=== PATIENT | male | born 1935 | race American Indian/Alaskan Native ===

== ENCOUNTER 2017-06-03 21:08 | Observation (INO) | payer MEDICARE ==
[2017-06-03 22:18] VITALS: BMI 22.2
--- NOTE | 2017-06-03 23:09 | ED PDOC ---
Arrival/HPI - General Chief Complaint: Syncope Time Seen by Provider: 06/03/17 22:33 Historian: Patient - History of Present Illness Narrative History of Present Illness (Text): 06/03/17 23:07 81 y/o male, pmh including htn/hyperlipidemia/seizure (was on phenobarbital and not sure has he been taking it)/CAD, allergic to morphine, c/o 2 syncope episodes at home on 06/03/2017 2am and another episode around 3am while he was cooking with no chest pain or shortness of breath. Pt. stated that he was cooking and pass out the first time. Pt. pass out another time while he was walking from the kitchen to the bedroom which he stated that he noticed that he urinated on himself. Pt. woke up and noticed the food on the floor, admits lt. hip and lt .shoulder pain plus the lower back pain from the syncope episode, didn't speak up until later this evening to the daughter and send him to the ER for evaluation. pt. stated that he feels well and no discomfort, no palpitation , no night sweat, no dizziness, no other medical or psychological complaints. Past Medical History - Provider Review Nursing Documentation Reviewed: Yes - Infectious Disease Hx of Infectious Diseases: None - Cardiac Hx Hypertension: Yes - Psychiatric Hx Substance Use: No - Surgical History Hx Cardiac Catheterization: Yes (x 1 stent) - Anesthesia Hx Anesthesia: Yes Hx Anesthesia Reactions: No Hx Malignant Hyperthermia: No Family/Social History - Physician Review Nursing Documentation Reviewed: Yes Family/Social History: Unknown Family HX Smoking Status: Never Smoked Hx Alcohol Use: No Hx Substance Use: No Allergies/Home Meds Allergies/Adverse Reactions: Allergies morphine Allergy (Verified 06/03/17 22:19) SWELLING Home Medications: Home Meds Medication Instructions Recorded Confirmed Amoxicillin [Amoxil 500 mg Cap] 1 cap PO BID 06/03/17 06/03/17 Aspirin [Adult Low Dose Aspirin EC] 1 tab PO DAILY 06/03/17 06/03/17 Atorvastatin [Lipitor] 1 tab PO HS 06/03/17 06/03/17 Carvedilol [Coreg] 1 tab PO BID 06/03/17 06/03/17 Losartan [Cozaar] 1 tab PO DAILY 06/03/17 06/03/17 Multivit-Min/FA/Lycopen/Lutein 1 tab PO DAILY 06/03/17 06/03/17 [Centrum Silver Tablet] Promethazine [Phenergan Syrup] 2 tsp PO TID 06/03/17 06/03/17 amLODIPine [Norvasc] 1 tab PO DAILY 06/03/17 06/03/17 Review of Systems - Review of Systems Constitutional: absent: Fatigue, Fevers, Night Sweats Eyes: absent: Vision Changes ENT: absent: Hearing Changes Respiratory: absent: SOB, Cough Cardiovascular: absent: Chest Pain Gastrointestinal: absent: Abdominal Pain, Diarrhea, Nausea, Vomiting Musculoskeletal: Arthralgias, Back Pain, Myalgias Skin: absent: Rash, Pruritis Neurological: absent: Headache, Dizziness Psychiatric: absent: Anxiety, Depression Physical Exam Vital Signs Reviewed: Yes Vital Signs Temp Pulse Resp BP Pulse Ox 06/04/17 10:24 65 122/75 06/04/17 10:23 67 122/75 06/03/17 22:30 98.6 F 68 12 134/76 100 Temperature: Afebrile Blood Pressure: Normal Pulse: Regular Respiratory Rate: Normal Appearance: Positive for: Well-Appearing, Non-Toxic, Comfortable Pain Distress: None Mental Status: Positive for: Alert and Oriented X 3 - Systems Exam Head: Present: Atraumatic, Normocephalic. No: Tenderness, Contusion, Swelling, Ecchymosis, Abrasion, Laceration, Other Pupils: Present: PERRL Extroacular Muscles: Present: EOMI Conjunctiva: Present: Normal Mouth: Present: Moist Mucous Membranes Nose (External): Present: Atraumatic. No: Abrasion, Contusion, Laceration, Lesions Nose (Internal): Present: Normal Inspection, No Active Bleeding. No: Rhinorrhea , Septal Hematoma, Epistaxis Neck: Present: Normal Range of Motion, Trachea Midline. No: Meningeal Signs, MIDLINE TENDERNESS, Paraspinal Tenderness, Lymphadenopathy Respiratory/Chest: Present: Clear to Auscultation, Good Air Exchange. No: Respiratory Distress, Accessory Muscle Use Cardiovascular: Present: Regular Rate and Rhythm, Normal S1, S2. No: Murmurs Abdomen: Present: Normal Bowel Sounds. No: Tenderness, Distention, Peritoneal Signs, Rebound, Guarding Back: Present: Normal Inspection, Paraspinal Tenderness (+ttp on the lt. paraspinal muscle region, no deformity, SLR test negative. ). No: CVA Tenderness, Midline Tenderness Upper Extremity: Present: Normal Inspection, Other (LUE: mild +ttp on the shoulder joint, no deformity, FROM without limitation, sensation intact, motor 5 /5, +Radial pulse, capillary refill< 2 seconds, neurovascular intact. ). No: Cyanosis, Edema Lower Extremity: Present: Normal Inspection, Other (LLE: +ttp on the lt. anterior kness otherwise no tenderness or swelling, no deformity, FROM without limitation, sensation intact, motor 5/5, +DPPT pulse, capillary refill< 2 seconds, neurovascular intact.). No: Edema Neurological: Present: GCS=15, CN II-XII Intact, Speech Normal, Motor Func Grossly Intact, Gait Normal, Memory Normal, Other (normal finger to nose, normal heel to burgess test, no focal neurological deficits. ) Skin: Present: Warm, Dry, Normal Color. No: Rashes Psychiatric: Present: Alert, Oriented x 3, Normal Insight, Normal Concentration Medical Decision Making ED Course and Treatment: 06/03/17 23:07 -labs/ua/cardiac enzyme -CT head and lumber -Hips/pelvis and lt. shouder xray -IVF -EKG -cardiac sonographer -Observe and reassess 06/04/17 01:45 -EKG: NSR @ 68 BPM, no ST elevation or depression, no T wave inversion, no previous comparison for ekg. -CT head show no acute findings -CT lumbar No fracture. If back pain persists, consider MRI for further evaluation. Prostate enlargement. Followup as clinically warranted. Mild bladder wall thickening. Clinical correlation is needed. -Bilateral hip and pelvis no acute fracture or dislocation. -Lt. shoulder xray no acute fracture or dislocation -Lt. knee xray show no acute findings. Ordered as the patient now complaints about left knee pain. -Labs show no acute findings except BUN 24 (IVF ordered) and CK 403 (likely from fall or seizure), BNP negative, troponin is negative at this time. -UA show no UTI -Aspirin 325mg po ordered as the work up conclusion for syncope is unclear at this point, aspiration and seizure precaution ordered. Phenobarbital level ordered as well. -NIHSS is 0 -swallow screen ordered and completed. -base on the labs/HPI/radiology study, it's likely neurologic syncope vs. cardiac syncope vs. seizure especially with elevation of CK, will need to be admitted for work up for 2 episodes of syncope episodes in less than 24 hours. 06/04/17 02:04 -I spoke to the medical doctor and DR. Huber Hightower about the case, discussed about the case in detail, agreed to admit the patient to tele. -I discussed with Dr. Arana, discussed about the case/labs in detail, agreed to put the admission order. - Lab Interpretations Lab Results: 06/03/17 23:05 06/03/17 23:05 Lab Results 06/04/17 00:15: Urine Color Yellow, Urine Appearance Clear, Urine pH 6.0, Ur Specific [place] 1.020, Urine Protein Negative, Urine Glucose (UA) Negative, Urine Ketones Negative, Urine Blood Negative, Urine Nitrate Negative, Urine Bilirubin Negative, Urine Urobilinogen 0.2, Ur Leukocyte Esterase Negative 06/03/17 23:05: WBC 7.1, RBC 4.71, Hgb 11.5 L, Hct 36.3 L, MCV 77.1 L, MCH 24.4 L, MCHC 31.7, RDW 13.3, Plt Count 173, MPV 10.6, Gran % 52.6, Lymph % (Auto) 33.8, [place] % (Auto) 7.0 H, Eos % (Auto) 6.0 H, Baso % (Auto) 0.6, Gran # 3.72, Lymph # (Auto) 2.4, [place] # (Auto) 0.5, Eos # (Auto) 0.4, Baso # (Auto) 0.04 06/03/17 23:05: Sodium 140, Potassium 4.1, Chloride 102, Carbon Dioxide 27, Anion Gap 15, BUN 24 H, Creatinine 1.4, Est GFR ( Amer) 59, Est GFR (Non- Af Amer) 49, Random Glucose 91, Calcium 9.8, Magnesium 2.0, Total Bilirubin 0.5 , AST 47, ALT 26, Alkaline Phosphatase 72, Lactate Dehydrogenase 484, Total Creatine Kinase 403 H, CK-MB (CK-2) 2.6, CK-MB (CK-2) % Cancelled, Troponin I < 0.01, Total Protein 7.3, Albumin 4.2, Globulin 3.1, Albumin/Globulin Ratio 1.3 - RAD Interpretation Radiology Orders: 06/03/17 23:02 HEAD W/O CONTRAST [CT] Stat LUMBAR SPINE W/O CONTRAST [CT] Stat SHOULDER LEFT [RAD] Stat 06/03/17 23:06 Hip Bi with Pelvis Fall Protocol [HIP MIN 2V W/ PELVIS MARTINE] [RAD] Stat 06/04/17 02:03 KNEE WITH PATELLA LEFT 3 VIEW [RAD] Stat -CT head FINDINGS: Brain: [id number] atrophy. No intracranial hemorrhage. No mass. Several scattered foci of decreased attenuation within periventricular/subcortical white matter. No definite edema. Ventricles: No hydrocephalus. Bones/joints: No acute fracture. Degenerative changes of RIGHT temporomandibular joint. Soft tissues: Unremarkable. Vasculature: Mild atherosclerotic disease of intracranial arteries. Sinuses: Ipqo-[id number] mucosal thickening of ethmoid sinuses. Scattered minimal mucosal thickening of remaining sinuses. Mastoid air cells: No mastoid effusion. Orbits: Unremarkable as visualized. IMPRESSION: 1. Nonspecific white matter changes. Acute infarction may be CT occult within first 24 hours. If a focal deficit persists, consider followup CT or MRI for further evaluation. 2. Incidental/non-acute findings are described above. Dictated and Authenticated by: Eladio Lora MD 06/04/2017 12:48 AM Eastern Time ([place] & [place]) -CT lumbar FINDINGS: Vertebrae: No acute fracture. Degenerative retrolithesis of upper lumbar spine. Levoscoliosis. Facet osteoarthrosis. Discs/spinal canal/neural foramina: Moderate degenerative disc disease at L1-L2 , L2-L3 levels. Severe degenerative disc disease at L3-L4, L5-S1 levels. Mild central canal stenosis at L1-L2, L2-L3 levels. Moderate central canal stenosis at L3-L4, L4-L5 levels. Multilevel neuroforaminal narrowing. Soft tissues: Unremarkable. Vasculature: Mild atherosclerotic disease. Lungs: Mild atelectasis. Liver: Small calcification. Adrenals: Mild hypertrophy of adrenal glands. Bladder: Mild bladder wall thickening. Reproductive: Enlarged prostate gland. IMPRESSION: 1. No fracture. If back pain persists, consider MRI for further evaluation. 3. Prostate enlargement. Followup as clinically warranted. 4. Mild bladder wall thickening. Clinical correlation is needed. 5. Incidental/non-acute findings are described above. Thank you for allowing us to participate in the care of your patient. Dictated and Authenticated by: Eladio Lora MD 06/04/2017 1:28 AM Eastern Time ([place] & [place]) -Bilateral hip and pelvis: no acute findings -Lt. shoulder xray: no acute findings Bilingual Teacher Assistant: Radiologist - EKG Interpretation EKG Interpretation (Text): 06/04/17 14:46 EKG: NSR @ 68 BPM, no ST elevation or depression, no T wave inversion, no previous comparison for ekg. Interpreted by ED Physician: Yes Type: 12 lead EKG Comparison: No previous EKG avail. - Medication Orders Current Medication Orders: Amlodipine Besylate (Norvasc) 10 mg PO DAILY [facility] Last Admin: 06/04/17 10:23 Dose: 10 mg MAR Blood Pressure Document 06/04/17 10:23 NGOLK (Rec: 06/04/17 10:23 NGOLK [id number]) Blood Pressure Blood Pressure (100/60-150/90) 122/75 Aspirin (Ecotrin) 81 mg PO DAILY [facility] Last Admin: 06/04/17 10:23 Dose: 81 mg Atorvastatin Calcium (Lipitor) 40 mg PO [facility] Carvedilol (Coreg) 3.125 mg PO BID [facility] Last Admin: 06/04/17 10:24 Dose: 3.125 mg [facility] Pulse and Blood Pressure Document 06/04/17 10:24 NGOLK (Rec: 06/04/17 10:24 NGOLK [id number]) Pulse Pulse Rate (60-90) 65 Blood Pressure Blood Pressure (100/60-150/90) 122/75 Famotidine (Pepcid) 40 mg PO HS [facility] Sodium Chloride (Sodium Chloride 0.9%) 1,000 mls @ 100 mls/hr IV .Q10H [facility] Last Admin: 06/04/17 10:23 Dose: 100 mls/hr eMAR Start Stop Document 06/04/17 10:23 NGOLK (Rec: 06/04/17 10:23 NGOLK [id number]) Intravenous Solution Start Date 06/04/17 Start Time 10:23 Ketorolac Tromethamine (Toradol) 15 mg IVP Q6H PRN PRN Reason: Pain, moderate (4-7) Losartan Potassium (Cozaar) 50 mg PO DAILY [facility] Last Admin: 06/04/17 10:23 Dose: 50 mg MAR Pulse and Blood Pressure Document 06/04/17 10:23 NGOLK (Rec: 06/04/17 10:24 NGOLK [id number]) Pulse Pulse Rate (60-90) 67 Blood Pressure Blood Pressure (100/60-150/90) 122/75 Discontinued Medications Aspirin (Aspirin) 325 mg PO STAT STA Stop: 06/04/17 00:58 Last Admin: 06/04/17 01:13 Dose: 325 mg Potassium Chloride (K-Dur 20 Meq Er Tab) 40 meq PO STAT STA Stop: 06/04/17 08:16 Last Admin: 06/04/17 08:34 Dose: 40 meq NIHSS Scale ([place]) Time Performed: 00:58 - How Severe is the [place]oke Baseline Level of Consciousness: 0=Alert LOC to Questions: 0=Both comments correct LOC to commands: 0=Obeys both correctly Best Gaze: 0=Normal Visual: 0=No visual loss Facial: 0=Normal Motor Arm - Left: 0=No drift Motor Arm - Right: 0=No drift Motor Leg - Left: 0=No drift Motor Leg - Right: 0=No drift Limb Ataxia: 0=Absent Sensory: 0=Normal Best Language: 0=No aphasia Dysarthia: 0=Normal articulation Extinction & Inattention (Neglect): 0=Normal, no object Score: 0 Risk Level: No Stroke Risk - PA / PRINTING SALES REPRESENTATIVE / Resident Statement MD/DO has reviewed & agrees with the documentation as recorded. Disposition/Present on Arrival - Present on Arrival Any Indicators Present on Arrival: No History of DVT/PE: No History of Uncontrolled Diabetes: No Urinary Catheter: No History of Decub. Ulcer: No History Surgical Site Infection Following: None - Disposition Have Diagnosis and Disposition been Completed?: Yes Diagnosis: Syncope, Arthralgia, Dehydration, Elevated CK Disposition: HOSPITALIZED Disposition Time: 00:59 Patient Plan: Admission, Telemetry Patient Problems: Current Active Problems Problem Status Onset Arthralgia Acute Dehydration Acute Elevated CK Acute Syncope Acute Condition: STABLE
[2017-06-03 23:47] LABS: BASO # 0.04 K/mm3 (0.0-2.0); BASO % 0.6 % (0.0-3.0); EOS # 0.4 (0.0-0.7); GRAN # 3.72 (1.4-6.5); GRAN % 52.6 % (50.0-68.0); HEMOGLOBIN 11.5 g/dL (14.0-18.0); LYMPH # 2.4 (1.2-3.4); LYMPH % 33.8 % (22.0-35.0); MEAN CELL VOLUME 77.1 fl (80.0-105.0); MEAN CORPUSCULAR HEMOGLOBIN 24.4 pg (25.0-35.0); MEAN CORPUSCULAR HGB CONC 31.7 g/dl (31.0-37.0); MEAN PLATELET VOLUME 10.6 fl (7.0-11.0); MONO # 0.5 (0.1-0.6); RBC 4.71 10^6/uL (3.5-6.1); RED CELL DISTRIBUTION WIDTH 13.3 % (11.5-14.5); WHITE BLOOD COUNT 7.1 10^3/ul (4.5-11.0)
[2017-06-03] MEDS: Sodium Chloride 0.9% 1,000 ML IV SCH (23:49)
[2017-06-04] LABS: TROPONIN I < 0.01 ng/mL
[2017-06-04 00:03] LABS: ALB/GLOB RATIO 1.3 (1.1-1.8); ALBUMIN 4.2 g/dL (3.0-4.8); ALT/SGPT 26 U/L (7-56); AST/SGOT 47 U/L (17-59); BLOOD UREA NITROGEN 24 mg/dL (7-21); CALCIUM 9.8 mg/dL (8.4-10.5); GFR AFRICAN-AMERICAN 59; GFR NON-AFRICAN AMERICAN 49
[2017-06-04 00:24] LABS: CK-MB 2.6 ng/mL (0.0-3.6)
[2017-06-04 00:29] LABS: URINE BILIRUBIN NEGATIVE (NEGATIVE); URINE BLOOD NEGATIVE (NEGATIVE); URINE GLUCOSE (UA) NEGATIVE (NEGATIVE); URINE LEUKOCYTE ESTERASE NEGATIVE Leu/uL (NEGATIVE); URINE NITRATE NEGATIVE (NEGATIVE); URINE PROTEIN NEGATIVE mg/dL (<30 mg/dL); URINE UROBILINOGEN 0.2 E.U./dL (<1 E.U./dL)
[2017-06-04 00:30] LABS: URINE APPEARANCE CLEAR (CLEAR); URINE COLOR YELLOW (YELLOW)
--- NOTE | 2017-06-04 00:49 | CT ---
EXAM: CT Head Without Intravenous Contrast CLINICAL HISTORY: 81 years old, male; Signs and symptoms; Syncope and collapse TECHNIQUE: Axial computed tomography images of the head/brain without intravenous contrast. All CT scans at this facility use one or more dose reduction techniques, viz.: automated exposure control; ma/kV adjustment per patient size (including targeted exams where dose is matched to indication; i.e. head); or iterative reconstruction technique. Coronal and sagittal reformatted images were created and reviewed. COMPARISON: No relevant prior studies available. FINDINGS: Brain: Dlny-bw-snwnugxx atrophy. No intracranial hemorrhage. No mass. Several scattered foci of decreased attenuation within periventricular/subcortical white matter. No definite edema. Ventricles: No hydrocephalus. Bones/joints: No acute fracture. Degenerative changes of RIGHT temporomandibular joint. Soft tissues: Unremarkable. Vasculature: Mild atherosclerotic disease of intracranial arteries. Sinuses: Uuvk-[id number]-xdeqtcsb mucosal thickening of ethmoid sinuses. Scattered minimal mucosal thickening of remaining sinuses. Mastoid air cells: No mastoid effusion. Orbits: Unremarkable as visualized. IMPRESSION: 1. Nonspecific white matter changes. Acute infarction may be CT occult within first 24 hours. If a focal deficit persists, consider followup CT or MRI for further evaluation. 2. Incidental/non-acute findings are described above.
--- NOTE | 2017-06-04 01:28 | CT ---
EXAM: CT Lumbar Spine Without Intravenous Contrast CLINICAL HISTORY: 81 years old, male; Pain; Low back pain; Additional info: Lower back pain S/P fall TECHNIQUE: Axial computed tomography images of the lumbar spine without intravenous contrast. All CT scans at this facility use one or more dose reduction techniques, viz.: automated exposure control; ma/kV adjustment per patient size (including targeted exams where dose is matched to indication; i.e. head); or iterative reconstruction technique. Coronal and sagittal reformatted images were created and reviewed. COMPARISON: No relevant prior studies available. FINDINGS: Vertebrae: No acute fracture. Degenerative retrolithesis of upper lumbar spine. Levoscoliosis. Facet osteoarthrosis. Discs/spinal canal/neural foramina: Moderate degenerative disc disease at L1-L2, L2-L3 levels. Severe degenerative disc disease at L3-L4, L5-S1 levels. Mild central canal stenosis at L1-L2, L2-L3 levels. Moderate central canal stenosis at L3-L4, L4-L5 levels. Multilevel neuroforaminal narrowing. Soft tissues: Unremarkable. Vasculature: Mild atherosclerotic disease. Lungs: Mild atelectasis. Liver: Small calcification. Adrenals: Mild hypertrophy of adrenal glands. Bladder: Mild bladder wall thickening. Reproductive: Enlarged prostate gland. IMPRESSION: 1. No fracture. If back pain persists, consider MRI for further evaluation. 3. Prostate enlargement. Followup as clinically warranted. 4. Mild bladder wall thickening. Clinical correlation is needed. 5. Incidental/non-acute findings are described above.
--- NOTE | 2017-06-04 03:24 | CP.PCM.HP ---
<Georgia Ray - Last Filed: 06/04/17 03:13> History of Present Illness - History of Present Illness History of Present Illness: CC: I passed out and fell Patient is an 81 y/o male with PMHx of htn, hld, CAD s/p 1 stent, h/o recurrent syncope like episodes brought in by ambulance s/p unwitnessed syncopal episode. Patient states last night after fixing his meal, he felt dizzy, he decided to lye on the ground, to let it pass. Then few moments later he got up, grab his food, then he doesn't remember what happened after. He saw himself lying on the ground with food on the floor, his buttocks hurting him, and he noted he had bowel incontinent. Denies bladder incontinent. Admits to headache. Denies bitting his tongue. Patient states about a year ago, while sitting on the toilet in the [employer] he passed out and fell, was admitted to [facility] [place] at the time and was referred to a cardiology. Pt states he had extensive cardiac work up at the time and it was normal. Patient denies any other episodes up until today. Patient states his PMD, Dr Dennis prescribed him phenobarbital transiently, however he hasn't been on phenobarbital since then. Patient has never seen a neurologist. Denies cp, sob, fever or chills, denies nausea, vomiting or diarrhea. No fever or chills. Patient states his stool has been dark. Denies bright red blood per rectum. Cardiology: Total cardiology care Pharmacy: [facility] in [place] PMHx: htn, hld, CAD s/p 1 stent, h/o recurrent syncope like episodes PSHx: left knee surgery, colonoscopy in the past FMHx: son and daughter has seizures? Social: Denies tobacco, alcohol and illicit drug use. Lives with allergy: morphine Home meds: Norvasc, Lipitor, asa Present on Admission - Present on Admission Any Indicators Present on Admission: No History of DVT/PE: No History of Uncontrolled Diabetes: No Urinary Catheter: No Decubitus Ulcer Present: No Review of Systems - Review of Systems All systems: reviewed and no additional remarkable complaints except Review of Systems: 12 point ROS reviewed, all negative except as per HPI. Past Patient History - Infectious Disease Hx of Infectious Diseases: None - Tetanus Immunizations Tetanus Immunization: Unknown - Past Social History Smoking Status: Never Smoked Alcohol: None Drugs: Denies Home Situation {Lives}: With Family - CARDIAC Hx Hypertension: Yes - PSYCHIATRIC Hx Substance Use: No - SURGICAL HISTORY Hx Cardiac Catheterization: Yes (x 1 stent) - ANESTHESIA Hx Anesthesia: Yes Hx Anesthesia Reactions: No Hx Malignant Hyperthermia: No Meds Allergies/Adverse Reactions: Allergies Allergy/AdvReac Type Severity Reaction Status Date / Time morphine Allergy SWELLING Verified 06/03/17 22:19 Physical Exam - Constitutional Appears: No Acute Distress - Head Exam Head Exam: ATRAUMATIC, NORMAL INSPECTION, NORMOCEPHALIC - Eye Exam Eye Exam: EOMI, Normal appearance, PERRL. absent: Scleral icterus Pupil Exam: NORMAL ACCOMODATION, PERRL. absent: Fixed - ENT Exam ENT Exam: Mucous Membranes Moist, Normal Exam - Neck Exam Neck exam: Positive for: Normal Inspection. Negative for: Lymphadenopathy, Meningismus, Tenderness - Respiratory Exam Respiratory Exam: Clear to Auscultation Bilateral, NORMAL BREATHING PATTERN. absent: Decreased Breath Sounds, Prolonged Expiratory Phase, Rales, Rhonchi, Wheezes, Respiratory Distress, Stridor - Cardiovascular Exam Cardiovascular Exam: REGULAR RHYTHM, RRR, +S1, +S2. absent: Bradycardia, Tachycardia, Clicks, Diastolic murmur, Gallop, Irregular Rhythm, JVD, Rubs, Systolic Murmur - GI/Abdominal Exam GI & Abdominal Exam: Normal Bowel Sounds, Soft. absent: Diminished Bowel Sounds , Distended, Firm, Guarding, Pulsatile Mass, Rebound, Rigid, Tenderness - Extremities Exam Extremities exam: Positive for: normal inspection. Negative for: pedal edema - Back Exam Back exam: NORMAL INSPECTION, tenderness (sacral region) - Neurological Exam Neurological exam: Alert, CN II-XII Intact, Oriented x3, Reflexes Normal Additional comments: No motor deficit. - Psychiatric Exam Psychiatric exam: Normal Affect, Normal Mood - Skin Skin Exam: Dry, Intact, Normal Color, Warm Results - Vital Signs Recent Vital Signs: Last Vital Signs Temp 98.6 F 06/03/17 22:30 Pulse 68 06/03/17 22:30 Resp 12 06/03/17 22:30 BP 134/76 06/03/17 22:30 Pulse Ox 100 06/03/17 22:30 - Labs Result Diagrams: 06/03/17 23:05 06/03/17 23:05 - EKG Data EKG Interpreted by: Myself EKG shows normal: Sinus rhythm, [place] (normal), Intervals (normal), QRS complexes (normal), ST-T waves (normal) Rate: Normal Assessment & Plan - Assessment and Plan (Free Text) Assessment: Patient is an 81 y/o male with PMHx of htn, hld, CAD s/p 1 stent, h/o recurrent syncope like episodes brought in by ambulance s/p unwitnessed syncopal episode. Plan: 1) Syncope likely vasovagal, r/o metabolic syndrome, autonomic dysfunction, cardiac arrhythmia, dehydration, CVA, valvular disease, carotid artery stenosis versus anemia. - will add tsh, - will obtain orthostatic vital signs - admit on tele for cardiac monitoring - Trop x1 normal, will trend - EKG normal - carotid echo - IV hydration - carotid u/s - neurology consult - seizure/fall/ precaution, neuro checks - Contact PMD-Dr Dennis for medical record. 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 - Date & Time Date: 06/04/17 Time: 03:15 <Carla Hightower - Last Filed: 06/05/17 01:16> Results - Vital Signs Recent Vital Signs: Last Vital Signs Temp 97.9 F 06/05/17 00:00 Pulse 63 06/05/17 00:00 Resp 18 06/05/17 00:00 BP 123/74 06/05/17 00:00 Pulse Ox 96 06/04/17 08:10 - Labs Result Diagrams: 06/04/17 05:00 06/04/17 05:00 Labs: Laboratory Results - last 24 hr 06/04/17 06/04/17 06/04/17 03:00 03:00 03:00 WBC RBC Hgb Hct MCV MCH MCHC RDW Plt Count MPV Gran % Lymph % (Auto) Riley % (Auto) Eos % (Auto) Baso % (Auto) Gran # Lymph # (Auto) Riley # (Auto) Eos # (Auto) Baso # (Auto) Sodium Potassium Chloride Carbon Dioxide Anion Gap BUN Creatinine Est GFR ( Amer) Est GFR (Non-Af Amer) Random Glucose Calcium Iron 33 L TIBC 319 % Saturation 10 L Ferritin 60.3 Total Bilirubin AST ALT Alkaline Phosphatase Troponin I Total Protein Albumin Globulin Albumin/Globulin Ratio TSH 3rd Generation 1.35 06/04/17 06/04/17 06/04/17 05:00 05:00 10:55 WBC 6.3 RBC 4.20 Hgb 10.3 L Hct 32.3 L MCV 76.9 L MCH 24.5 L MCHC 31.9 RDW 13.3 Plt Count 160 MPV 9.8 Gran % 45.9 L Lymph % (Auto) 39.0 H Riley % (Auto) 7.6 H Eos % (Auto) 7.0 H Baso % (Auto) 0.5 Gran # 2.89 Lymph # (Auto) 2.5 Riley # (Auto) 0.5 Eos # (Auto) 0.4 Baso # (Auto) 0.03 Sodium 140 Potassium 3.3 L Chloride 108 H Carbon Dioxide 25 Anion Gap 11 BUN 18 Creatinine 1.1 Est GFR ( Amer) > 60 Est GFR (Non-Af Amer) > 60 Random Glucose 101 Calcium 8.3 L Iron TIBC % Saturation Ferritin Total Bilirubin 0.4 AST 37 ALT 28 Alkaline Phosphatase 49 Troponin I < 0.01 < 0.01 Total Protein 5.4 L Albumin 2.9 L Globulin 2.5 Albumin/Globulin Ratio 1.2 TSH 3rd Generation
[2017-06-04 04:32] LABS: IRON 33 ug/dL (45-180)
[2017-06-04 04:42] LABS: % IRON SATURATION 10 % (20-55); TOTAL IRON BINDING CAPACITY 319 ug/dL (261-462)
[2017-06-04 05:16] LABS: BASO # 0.03 K/mm3 (0.0-2.0); BASO % 0.5 % (0.0-3.0); EOS # 0.4 (0.0-0.7); GRAN # 2.89 (1.4-6.5); GRAN % 45.9 % (50.0-68.0); HEMOGLOBIN 10.3 g/dL (14.0-18.0); LYMPH # 2.5 (1.2-3.4); MEAN CELL VOLUME 76.9 fl (80.0-105.0); MEAN CORPUSCULAR HEMOGLOBIN 24.5 pg (25.0-35.0); MEAN CORPUSCULAR HGB CONC 31.9 g/dl (31.0-37.0); MEAN PLATELET VOLUME 9.8 fl (7.0-11.0); MONO # 0.5 (0.1-0.6); MONO % 7.6 % (1.0-6.0); RBC 4.2 10^6/uL (3.5-6.1); RED CELL DISTRIBUTION WIDTH 13.3 % (11.5-14.5); WHITE BLOOD COUNT 6.3 10^3/ul (4.5-11.0)
[2017-06-04 05:54] LABS: TROPONIN I < 0.01 ng/mL
[2017-06-04 06:05] LABS: ALB/GLOB RATIO 1.2 (1.1-1.8); ALBUMIN 2.9 g/dL (3.0-4.8); ALT/SGPT 28 U/L (7-56); AST/SGOT 37 U/L (17-59); BLOOD UREA NITROGEN 18 mg/dL (7-21); CALCIUM 8.3 mg/dL (8.4-10.5); GFR AFRICAN-AMERICAN > 60; GFR NON-AFRICAN AMERICAN > 60
[2017-06-04] MEDS ORDERED: Potassium Chloride 20 mEq ER Tab PO STA (08:15)
--- NOTE | 2017-06-04 09:48 | RAD ---
PROCEDURE: Radiographs of the pelvis and bilateral hips HISTORY: lt. hip pain COMPARISON: None. FINDINGS: BONES: Pelvis: Unremarkable. Right hip:Unremarkable. Left hip:Unremarkable. JOINTS: Right hip: Degenerative changes are moderate Left hip: Symmetrical degenerative change. Sacroiliac Joints: Unremarkable. Pubic symphysis: Unremarkable. SOFT TISSUES: Normal. OTHER FINDINGS: None. IMPRESSION: No acute findings related to/accounting for the clinical presentation. Concordant results with the preliminary interpretation rendered by the emergency department physician procedure.
--- NOTE | 2017-06-04 09:49 | RAD ---
PROCEDURE: Radiographs of the Left Shoulder HISTORY: lt. shoulder pain s/p fall COMPARISON: GoNo prior. FINDINGS: BONES: Normal. No fracture. JOINTS: Glenohumeral degenerative changes, mild. Acromioclavicular changes, mild. SOFT TISSUES: Normal. OTHER FINDINGS: None. IMPRESSION: No acute findings related to/accounting for the clinical presentation. Findings suggest of rotator cuff disease and mild acromioclavicular degenerative change. Concordant results with the preliminary interpretation rendered by the emergency department physician procedure.
--- NOTE | 2017-06-04 09:53 | RAD ---
PROCEDURE: Left Knee Radiographs. HISTORY: Pain. No history of recent/ related trauma provided COMPARISON: None. FINDINGS: BONES: No acute fracture. Proliferative hypertrophic changes emanating from the femoral condyle and tibial plateau regions. JOINTS: Severe medial compartment narrowing. Moderate patellofemoral degenerative change. Relative preservation of lateral compartment. JOINT EFFUSION: None. OTHER FINDINGS: None. IMPRESSION: No acute findings related to/accounting for the clinical presentation. Additional benign and/or incidental findings described above. Concordant results with the preliminary interpretation rendered by the emergency department physician procedure.
[2017-06-04] MEDS: Sodium Chloride 0.9% 1,000 ML IV SCH (10:23)
--- NOTE | 2017-06-04 14:17 | CP.PCM.CON ---
History of Present Illness - History of Present Illness History of Present Illness: Kay si an 81 y/o male with PMHx of htn, hld, CAD s/p 1 stent, h/o recurrent syncope like episodes brought in by ambulance s/p unwitnessed syncopal episode. As per ER physician: "Patient states last night after fixing his meal, he felt dizzy, he decided to lie on the ground, to let it pass. Then few moments later he got up, grab his food, then he doesn't remember what happened after. He saw himself lying on the ground with food on the floor, his buttocks hurting him, and he noted he had bowel incontinent. Denies bladder incontinent. Admits to headache. Denies bitting his tongue. Patient states about a year ago, while sitting on the toilet in [place] [employer] he passed out and fell, was admitted to [facility] [place] at the time and was referred to a cardiology. Pt states he had extensive cardiac work up at the time and it was normal. Patient denies any other episodes up until today. Patient states his PMD, Dr Dennis prescribed him phenobarbital transiently, however he hasn't been on phenobarbital since then. Patient has never seen a neurologist. Denies cp, sob, fever or chills, denies nausea, vomiting or diarrhea. No fever or chills. " It is quite difficult to obtain an epilepsy history from this patient. He states that "at some point" he was taken off phenobarbital. Cardiology: Total cardiology care Pharmacy: [facility] PMHx: htn, hld, CAD s/p 1 stent, h/o recurrent syncope like episodes PSHx: left knee surgery, colonoscopy in the past FMHx: son and daughter has seizures? Social: Denies tobacco, alcohol and illicit drug use. Lives with allergy: morphine Home meds: Norvasc, Lipitor, asa on exam: aaox3. pupils 3mm-2mm with light. EOMI. Cn 2-12 normal. Speech fluent. Can name and repeat. Motor: strength 5/5 ul and ll bl. Sensory: intact ft, pin Gait:normal. no rhomberg noted. +2 dtr ul and ll bl. Toes downgoing . No clonus Past Patient History - Infectious Disease Hx of Infectious Diseases: None - Tetanus Immunizations Tetanus Immunization: Unknown - Past Social History Smoking Status: Never Smoked Alcohol: None Drugs: Denies Home Situation {Lives}: With Family - CARDIAC Hx Hypertension: Yes - PSYCHIATRIC Hx Substance Use: No - SURGICAL HISTORY Hx Cardiac Catheterization: Yes (x 1 stent) - ANESTHESIA Hx Anesthesia: Yes Hx Anesthesia Reactions: No Hx Malignant Hyperthermia: No Meds Allergies/Adverse Reactions: Allergies Allergy/AdvReac Type Severity Reaction Status Date / Time morphine Allergy SWELLING Verified 06/03/17 22:19 - Medications Medications: Current Medications Amlodipine Besylate (Norvasc) 10 mg PO DAILY [facility] Last Admin: 06/04/17 10:23 Dose: 10 mg Aspirin (Ecotrin) 81 mg PO DAILY [facility] Last Admin: 06/04/17 10:23 Dose: 81 mg Atorvastatin Calcium (Lipitor) 40 mg PO HS [facility] Carvedilol (Coreg) 3.125 mg PO BID [facility] Last Admin: 06/04/17 10:24 Dose: 3.125 mg Famotidine (Pepcid) 40 mg PO HS [facility] Sodium Chloride (Sodium Chloride 0.9%) 1,000 mls @ 100 mls/hr IV .Q10H [facility] Last Admin: 06/04/17 10:23 Dose: 100 mls/hr Ketorolac Tromethamine (Toradol) 15 mg IVP Q6H PRN PRN Reason: Pain, moderate (4-7) Losartan Potassium (Cozaar) 50 mg PO DAILY [facility] Last Admin: 06/04/17 10:23 Dose: 50 mg Results - Vital Signs Recent Vital Signs: Last Vital Signs Temp 98.6 F 06/03/17 22:30 Pulse 65 06/04/17 10:24 Resp 12 06/03/17 22:30 BP 122/75 06/04/17 10:24 Pulse Ox 100 06/03/17 22:30 - Labs Result Diagrams: 06/04/17 05:00 06/04/17 05:00 Labs: Laboratory Results - last 24 hr 06/04/17 06/04/17 06/04/17 03:00 03:00 03:00 WBC RBC Hgb Hct MCV MCH MCHC RDW Plt Count MPV Gran % Lymph % (Auto) [place] % (Auto) Eos % (Auto) Baso % (Auto) Gran # Lymph # (Auto) [place] # (Auto) Eos # (Auto) Baso # (Auto) Sodium Potassium Chloride Carbon Dioxide Anion Gap BUN Creatinine Est GFR ( Amer) Est GFR (Non-Af Amer) Random Glucose Calcium Iron 33 L TIBC 319 % Saturation 10 L Ferritin 60.3 Total Bilirubin AST ALT Alkaline Phosphatase Troponin I Total Protein Albumin Globulin Albumin/Globulin Ratio TSH 3rd Generation 1.35 06/04/17 06/04/17 06/04/17 05:00 05:00 10:55 WBC 6.3 RBC 4.20 Hgb 10.3 L Hct 32.3 L MCV 76.9 L MCH 24.5 L MCHC 31.9 RDW 13.3 Plt Count 160 MPV 9.8 Gran % 45.9 L Lymph % (Auto) 39.0 H [place] % (Auto) 7.6 H Eos % (Auto) 7.0 H Baso % (Auto) 0.5 Gran # 2.89 Lymph # (Auto) 2.5 [place] # (Auto) 0.5 Eos # (Auto) 0.4 Baso # (Auto) 0.03 Sodium 140 Potassium 3.3 L Chloride 108 H Carbon Dioxide 25 Anion Gap 11 BUN 18 Creatinine 1.1 Est GFR ( Amer) > 60 Est GFR (Non-Af Amer) > 60 Random Glucose 101 Calcium 8.3 L Iron TIBC % Saturation Ferritin Total Bilirubin 0.4 AST 37 ALT 28 Alkaline Phosphatase 49 Troponin I < 0.01 < 0.01 Total Protein 5.4 L Albumin 2.9 L Globulin 2.5 Albumin/Globulin Ratio 1.2 TSH 3rd Generation Assessment & Plan - Assessment and Plan (Free Text) Assessment: 81 yr old male wtih multiple risk factors for stroke, history of epilepsy who had a syncopal spell with loss of consciousness. I would recommend the following , although his neurological exam is normal. Plan: 1. CTA of head as patient has multiple risk factors for stroke. 2. start aspirin 3. EEG: if abnormal, would start aeds. Thank you. Our team will follow.
[2017-06-04] MEDS ORDERED: Iohexol 350 MG/100 ML VIAL ONE (14:27)
--- NOTE | 2017-06-04 16:45 | CARD ---
APPROVED REPORT EKG Measurement Heart [id number] <Conclusion> Normal sinus rhythm Normal ECG
[2017-06-04] MEDS ORDERED: Pneumococcal 23-Valent Vaccine IM ONE (18:20)
[2017-06-04] MEDS ORDERED: Influenza Vaccine 60 mcg/0.5 mL SYR (4YR UP) IM ONE (18:20)
[2017-06-05 07:32] LABS: BASO # 0.01 K/mm3 (0.0-2.0); BASO % 0.2 % (0.0-3.0); EOS # 0.4 (0.0-0.7); EOS % 8.8 % (1.5-5.0); GRAN # 1.79 (1.4-6.5); GRAN % 38.4 % (50.0-68.0); HEMOGLOBIN 10.1 g/dL (14.0-18.0); LYMPH # 2.1 (1.2-3.4); LYMPH % 44.4 % (22.0-35.0); MEAN CELL VOLUME 77.1 fl (80.0-105.0); MEAN CORPUSCULAR HEMOGLOBIN 24.3 pg (25.0-35.0); MEAN CORPUSCULAR HGB CONC 31.6 g/dl (31.0-37.0); MEAN PLATELET VOLUME 10.5 fl (7.0-11.0); MONO # 0.4 (0.1-0.6); MONO % 8.2 % (1.0-6.0); RBC 4.15 10^6/uL (3.5-6.1); RED CELL DISTRIBUTION WIDTH 13.2 % (11.5-14.5); WHITE BLOOD COUNT 4.7 10^3/ul (4.5-11.0)
[2017-06-05 08:05] LABS: ALB/GLOB RATIO 1.2 (1.1-1.8); ALBUMIN 3.2 g/dL (3.0-4.8); CALCIUM 9.2 mg/dL (8.4-10.5)
--- NOTE | 2017-06-05 11:00 | US ---
PROCEDURE: Bilateral carotid artery duplex ultrasound HISTORY: Carotid stenosis PHYSICIAN(S): Louis Priest MD. TECHNIQUE: Duplex sonography and color-flow Doppler were used to evaluate the carotid bifurcations and limited segments of the vertebral arteries bilaterally. FINDINGS: There is mild smooth heterogeneous plaque noted at the carotid bifurcations bilaterally. The peak systolic velocity in the proximal right internal carotid artery is 71 cm/sec. This corresponds to a 20 to 39% proximal right ICA stenosis. Normal systolic velocities are noted in the proximal right external carotid artery. There is antegrade flow in the right vertebral artery. The peak systolic velocity in the proximal left internal carotid artery is 66 cm/sec. This corresponds to a 20 to 39% proximal left ICA stenosis. Normal systolic velocities are noted in the proximal left external carotid artery. There is antegrade flow in the left vertebral artery. IMPRESSION: 1. Bilateral 20-39% proximal ICA stenoses. 2. Antegrade flow in both vertebral arteries.
--- NOTE | 2017-06-05 13:02 | CP.PCM.PN ---
Subjective - Date & Time of Evaluation Date of Evaluation: 06/05/17 Time of Evaluation: 12:59 - Subjective Subjective: Mr. Barbosa was seen and examined at the bedside. He is alert, oriented. He denies any headache, dizziness, blurred vision, lightheadedness, diplopia, nausea, or vomiting. He is able to participate in a pleasant conversation and follow simple commands. There was no untoward events overnight. Objective - Vital Signs/Intake and Output Vital Signs (last 24 hours): Temp Pulse Resp BP Pulse Ox 97.4 F L 60 17 113/68 99 06/05/17 12:00 06/05/17 12:00 06/05/17 12:00 06/05/17 12:00 06/05/17 06:00 Intake and Output: 06/05/17 06/05/17 06:59 18:59 Intake Total 800 Output Total 1100 Balance -300 - Medications Medications: Current Medications Amlodipine Besylate (Norvasc) 10 mg PO DAILY [facility] Last Admin: 06/05/17 11:42 Dose: 10 mg Aspirin (Ecotrin) 81 mg PO DAILY [facility] Last Admin: 06/05/17 11:45 Dose: 81 mg Atorvastatin Calcium (Lipitor) 40 mg PO HS [facility] Last Admin: 06/04/17 22:02 Dose: 40 mg Carvedilol (Coreg) 3.125 mg PO BID [facility] Last Admin: 06/05/17 11:45 Dose: 3.125 mg Famotidine (Pepcid) 40 mg PO HS [facility] Last Admin: 06/04/17 22:02 Dose: 40 mg Sodium Chloride (Sodium Chloride 0.9%) 1,000 mls @ 100 mls/hr IV .Q10H [facility] Last Admin: 06/04/17 10:23 Dose: 100 mls/hr Ketorolac Tromethamine (Toradol) 15 mg IVP Q6H PRN PRN Reason: Pain, moderate (4-7) Last Admin: 06/05/17 06:33 Dose: 15 mg Losartan Potassium (Cozaar) 50 mg PO DAILY [facility] Last Admin: 06/05/17 11:42 Dose: 50 mg - Labs Labs: 06/05/17 07:00 06/05/17 07:00 - Constitutional Appears: No Acute Distress - Head Exam Head Exam: NORMAL INSPECTION - Neurological Exam Neurological Exam: Alert, Awake, Oriented x3 Neuro motor strength exam: Left Upper Extremity: 5, Right Upper Extremity: 5, Left Lower Extremity: 5, Right Lower Extremity: 5 Additional comments: He is alert, oriented, able to answer questions and follow simple commands. Sensation remains intact. Assessment and Plan (1) Syncope Assessment & Plan: Case discussed with Dr. Kirk, continue all current medical, physical, and occupational therapies. Recommend EEG and pending results of CTA. Status: Acute
--- NOTE | 2017-06-05 14:59 | CP.PCM.PN ---
<Tr Rodney - Last Filed: 06/05/17 14:56> Subjective - Date & Time of Evaluation Date of Evaluation: 06/05/17 Time of Evaluation: 14:57 - Subjective Subjective: Medicine Progress Note: Patient seen and assessed at bedside. No acute events since admission reported by nursing staff or patient. Patient is without complaints at this time, including fever, chills, headache, chest pain, palpitations, SOB, cough, abdominal pain, N/V/D/C, urinary symptoms, or any numbness/tingling/weakness of any extremity. Objective - Vital Signs/Intake and Output Vital Signs (last 24 hours): Temp Pulse Resp BP Pulse Ox 97.4 F L 60 17 113/68 99 06/05/17 12:00 06/05/17 12:00 06/05/17 12:00 06/05/17 12:00 06/05/17 06:00 Intake and Output: 06/05/17 06/05/17 06:59 18:59 Intake Total 800 Output Total 1100 Balance -300 - Medications Medications: Current Medications Amlodipine Besylate (Norvasc) 10 mg PO DAILY [facility] Last Admin: 06/05/17 11:42 Dose: 10 mg Aspirin (Ecotrin) 81 mg PO DAILY [facility] Last Admin: 06/05/17 11:45 Dose: 81 mg Atorvastatin Calcium (Lipitor) 40 mg PO [facility] Last Admin: 06/04/17 22:02 Dose: 40 mg Carvedilol (Coreg) 3.125 mg PO BID [facility] Last Admin: 06/05/17 11:45 Dose: 3.125 mg Famotidine (Pepcid) 40 mg PO HS [facility] Last Admin: 06/04/17 22:02 Dose: 40 mg Sodium Chloride (Sodium Chloride 0.9%) 1,000 mls @ 100 mls/hr IV .Q10H [facility] Last Admin: 06/04/17 10:23 Dose: 100 mls/hr Ketorolac Tromethamine (Toradol) 15 mg IVP Q6H PRN PRN Reason: Pain, moderate (4-7) Last Admin: 06/05/17 06:33 Dose: 15 mg Losartan Potassium (Cozaar) 50 mg PO DAILY [facility] Last Admin: 06/05/17 11:42 Dose: 50 mg - Labs Labs: 06/05/17 07:00 06/05/17 07:00 - Constitutional Appears: Non-toxic, No Acute Distress - Head Exam Head Exam: ATRAUMATIC, NORMAL INSPECTION, NORMOCEPHALIC - Eye Exam Eye Exam: EOMI, Normal appearance, PERRL - ENT Exam ENT Exam: Mucous Membranes Moist, Normal Exam - Neck Exam Neck Exam: Full ROM, Normal Inspection. absent: Lymphadenopathy - Respiratory Exam Respiratory Exam: Clear to Ausculation Bilateral, NORMAL BREATHING PATTERN. absent: Rales, Rhonchi, Wheezes - Cardiovascular Exam Cardiovascular Exam: REGULAR RHYTHM, +S1, +S2. absent: Murmur - GI/Abdominal Exam GI & Abdominal Exam: Soft, Normal Bowel Sounds. absent: Tenderness - Extremities Exam Extremities Exam: Full ROM, Normal Capillary Refill, Normal Inspection. absent : Calf Tenderness, Joint Swelling, Pedal Edema, Tenderness - Back Exam Back Exam: NORMAL INSPECTION - Neurological Exam Neurological Exam: Alert, Awake, CN II-XII Intact, Normal Gait, Oriented x3 - Psychiatric Exam Psychiatric exam: Normal Affect, Normal Mood - Skin Skin Exam: Dry, Intact, Normal Color, Warm Assessment and Plan - Assessment and Plan (Free Text) Assessment: 81 year old male with a past medical history significant for HTN, HLD, CAD s/p one RICHARD, and recurrent syncopal episodes who presents after unwitnessed syncopal episode and fall. Plan: 1. Syncopal Episode s/p Fall -CT Head showing no acute IC abnormalities or hemorrhage -Carotid Duplex showing no significant stenosis -Knee X-Ray, Hip/Pelvis X-Ray, Shoulder X-Ray and Lumbar Spine CT showing no acute fractures -Echo, Head/Neck CTA and EEG pending -IM Toradol Q6 PRN for pain control -Continue NS at 100mls/hr -Neurology consulted, all recommendations appreciated -PT/OT recommending home upon discharge -Aspiration, Fall and Seizure precautions 2. History of CAD -Continue ASA and Coreg 3. History of HTN -Continue Cozaar and Norvasc 4. History of HLD -Continue Lipitor GI Prophylaxis: Pepcid DVT Prophylaxis: SCD's Patient seen and case discussed with attending, Dr. Nascimento. <Devin Nascimento - Last Filed: 06/05/17 17:46> Objective - Vital Signs/Intake and Output Vital Signs (last 24 hours): Temp Pulse Resp BP Pulse Ox 97.4 F L 72 17 140/88 99 06/05/17 12:00 06/05/17 17:31 06/05/17 12:00 06/05/17 17:31 06/05/17 06:00 Intake and Output: 06/05/17 06/05/17 06:59 18:59 Intake Total 800 Output Total 1100 Balance -300 - Medications Medications: Current Medications Amlodipine Besylate (Norvasc) 10 mg PO DAILY [facility] Last Admin: 06/05/17 11:42 Dose: 10 mg Aspirin (Ecotrin) 81 mg PO DAILY [facility] Last Admin: 06/05/17 11:45 Dose: 81 mg Atorvastatin Calcium (Lipitor) 40 mg PO [facility] Last Admin: 06/04/17 22:02 Dose: 40 mg Carvedilol (Coreg) 3.125 mg PO BID [facility] Last Admin: 06/05/17 17:31 Dose: 3.125 mg Famotidine (Pepcid) 40 mg PO HS [facility] Last Admin: 06/04/17 22:02 Dose: 40 mg Sodium Chloride (Sodium Chloride 0.9%) 1,000 mls @ 100 mls/hr IV .Q10H [facility] Last Admin: 06/05/17 16:22 Dose: 100 mls/hr Ketorolac Tromethamine (Toradol) 15 mg IVP Q6H PRN PRN Reason: Pain, moderate (4-7) Last Admin: 06/05/17 16:22 Dose: 15 mg Losartan Potassium (Cozaar) 50 mg PO DAILY [facility] Last Admin: 06/05/17 11:42 Dose: 50 mg - Labs Labs: 06/05/17 07:00 06/05/17 07:00 Attending/Attestation - Attestation I have personally seen and examined this patient.: Yes I have fully participated in the care of the patient.: Yes I have reviewed all pertinent clinical information, including history, physical exam and plan: Yes Notes (Text): 06/05/17 17:41 Attending note; Patient seen and examined with resident. Patient is a 81-year-old male with a past medical history significant for hypertension, hyperlipidemia, coronary artery disease s/p one drug-eluting stent placement and recurrent syncopal episodes who presents after unwitnessed syncopal episode and fall. Patient denies any tongue bite or urinary incontinence. Patient was feeling weak. Patient also complains of generalized muscle ache and joint pain. X-rays negative. No injury noted. CT head is negative. CT angiogram of head and neck done and results pending. Cardiac enzymes negative. Echocardiogram pending. EEG pending. Neurology evaluation appreciated. PT evaluation appreciated. Possible discharge home tomorrow if workup is negative. Patient follows up with PMD Dr. Nicol Dennis. 06/05/17 17:46
[2017-06-05] MEDS: Sodium Chloride 0.9% 1,000 ML IV SCH (16:22)
[2017-06-06 08:12] VITALS: PULSE 61
[2017-06-06 08:15] LABS: BASO # 0.03 K/mm3 (0.0-2.0); BASO % 0.7 % (0.0-3.0); EOS # 0.3 (0.0-0.7); EOS % 6.5 % (1.5-5.0); GRAN # 1.87 (1.4-6.5); GRAN % 41.7 % (50.0-68.0); HEMOGLOBIN 10.3 g/dL (14.0-18.0); LYMPH % 44.4 % (22.0-35.0); MEAN CELL VOLUME 77.1 fl (80.0-105.0); MEAN CORPUSCULAR HEMOGLOBIN 24.3 pg (25.0-35.0); MEAN CORPUSCULAR HGB CONC 31.5 g/dl (31.0-37.0); MEAN PLATELET VOLUME 9.4 fl (7.0-11.0); MONO # 0.3 (0.1-0.6); MONO % 6.7 % (1.0-6.0); RBC 4.24 10^6/uL (3.5-6.1); RED CELL DISTRIBUTION WIDTH 13.3 % (11.5-14.5); WHITE BLOOD COUNT 4.5 10^3/ul (4.5-11.0)
[2017-06-06 08:31] LABS: ALB/GLOB RATIO 1.3 (1.1-1.8); ALBUMIN 3.5 g/dL (3.0-4.8); ALT/SGPT 28 U/L (7-56); AST/SGOT 29 U/L (17-59); BLOOD UREA NITROGEN 22 mg/dL (7-21); CALCIUM 9.3 mg/dL (8.4-10.5); GFR AFRICAN-AMERICAN > 60; GFR NON-AFRICAN AMERICAN 53
--- NOTE | 2017-06-06 13:50 | CP.PCM.PN ---
Subjective - Date & Time of Evaluation Date of Evaluation: 06/06/17 Time of Evaluation: 13:49 - Subjective Subjective: Mr. Barbosa was seen and examined at the bedside. He is alert, oriented but states of experiencing minimal headache in his left temporal area radiating to his left eye. He denies any blurred vision, nausea, or vomiting. He is able to ambulate with steady gait. There was no untoward events overnight. Objective - Vital Signs/Intake and Output Vital Signs (last 24 hours): Temp Pulse Resp BP Pulse Ox 98.4 F 61 18 130/80 100 06/06/17 07:30 06/06/17 07:30 06/06/17 07:30 06/06/17 13:07 06/06/17 07:30 Intake and Output: 06/06/17 06/06/17 06:59 18:59 Intake Total 180 Balance 180 - Medications Medications: Current Medications Amlodipine Besylate (Norvasc) 10 mg PO DAILY [facility] Last Admin: 06/06/17 13:07 Dose: 10 mg Aspirin (Ecotrin) 81 mg PO DAILY [facility] Last Admin: 06/06/17 13:07 Dose: 81 mg Atorvastatin Calcium (Lipitor) 40 mg PO HS [facility] Last Admin: 06/05/17 21:22 Dose: 40 mg Carvedilol (Coreg) 3.125 mg PO BID [facility] Last Admin: 06/06/17 13:07 Dose: 3.125 mg Famotidine (Pepcid) 40 mg PO HS [facility] Last Admin: 06/05/17 21:22 Dose: 40 mg Ketorolac Tromethamine (Toradol) 15 mg IVP Q6H PRN PRN Reason: Pain, moderate (4-7) Last Admin: 06/05/17 16:22 Dose: 15 mg Losartan Potassium (Cozaar) 50 mg PO DAILY [facility] Last Admin: 06/06/17 13:07 Dose: 50 mg - Labs Labs: 06/06/17 07:50 06/06/17 07:50 - Constitutional Appears: No Acute Distress - Head Exam Head Exam: NORMAL INSPECTION - Neurological Exam Neurological Exam: Alert, Awake, Oriented x3 Neuro motor strength exam: Left Upper Extremity: 5, Right Upper Extremity: 5, Left Lower Extremity: 5, Right Lower Extremity: 5 Additional comments: Neurological unchanged from previous examination. Assessment and Plan (1) Syncope Assessment & Plan: Case discussed with Dr. Mitchell, continue all current medical, physical therapies. Pending EEG results if EEG is normal, may discharge patient to home. Status: Acute (2) Headache Assessment & Plan: Case discussed with Dr. Mitchell, recommend Magnesium oxide 400 mg PO BID. Status: Acute
--- NOTE | 2017-06-06 14:10 | CT ---
PROCEDURE: CT Angiography of the neck and head with contrast HISTORY: syncope/carotid pathology COMPARISON: Comparison is made to the previous CT of the head without contrast dated 06/04/2017 TECHNIQUE: Contiguous axial images of the neck were obtained from the level of the skull-base to the superior mediastinum in the arteriographic phase of enhancement. Coronal and sagittal reformats or also generated. IV contrast dose: 100 mL of Omnipaque 350 Radiation Dose - DLP: 592.78 mGy-cm This CT exam was performed using one or more of the following dose reduction techniques: Automated exposure control, adjustment of the mA and/or kV according to patient size, and/or use of iterative reconstruction technique. FINDINGS: RIGHT CAROTID ARTERIES: Common Carotid Artery: Normal. Carotid Bifurcation: Atherosclerotic calcification is noted. Mild less than 50 percent stenosis noted at the carotid bifurcation. Internal Carotid Artery:Mild less than 50 percent noted at the origin of the right internal carotid artery. The proximal portion of the right internal carotid artery is tortuous. External Carotid Artery (proximal branches): Normal. LEFT CAROTID ARTERIES: Common Carotid Artery: Normal. Carotid Bifurcation: Mild atherosclerotic disease without evidence of significant stenosis. Internal Carotid Artery:Normal. External Carotid Artery (proximal branches): Normal. VERTEBRAL ARTERIES: Right Vertebral Artery: Normal. Left Vertebral Artery: Normal. OTHER FINDINGS: None. INTERNAL CEREBRAL ARTERIES: Unremarkable. The skull base, petrous, cavernous and supraclinoid segments are bilaterally widely patent. ANTERIOR CEREBRAL ARTERIES: Unremarkable. A1 and A2 segments are widely patent. Smaller distal branches unremarkable, as visualized. MIDDLE CEREBRAL ARTERIES: Unremarkable. M1 and M2 segments are widely patent. Perisylvian branches grossly symmetric. POSTERIOR CIRCULATION: Basilar Artery: Unremarkable. Distal Vertebral Arteries: Unremarkable. Posterior Cerebral Arteries: Unremarkable. Posterior Inferior Cerebellar Arteries: Unremarkable. ANEURYSM/ VASCULAR MALFORMATIONS: None. IMPRESSION: Atherosclerotic calcification and mild less than 50 percent stenosis noted at the right carotid bifurcation and origin of right internal carotid artery. Otherwise no evidence of significant stenosis in the carotid arteries and intracranial arteries. Mild sinuses mucosal disease. Preliminary report was submitted by virtual Radiology on 06/04/2017 at 7:17 p.m. Eastern time.
[2017-06-06] MEDS: Magnesium Oxide 400 mg Tab UD PO SCH ×2 (15:37→17:01)
--- NOTE | 2017-06-06 16:00 | CP.PCM.PN ---
<Bo Ford - Last Filed: 06/06/17 15:53> Subjective - Date & Time of Evaluation Date of Evaluation: 06/06/17 Time of Evaluation: 09:10 - Subjective Subjective: Medicine progress note for Dr. Johann Hightower Hospitalist Service Patient seen and examined at bedside. Patient reports that he is doing well at the moment. He has not had any syncopal events since admission. Denies dizziness , chest pain, palpitations, dyspnea. Objective - Vital Signs/Intake and Output Vital Signs (last 24 hours): Temp Pulse Resp BP Pulse Ox 98.4 F 61 18 130/80 100 06/06/17 07:30 06/06/17 07:30 06/06/17 07:30 06/06/17 13:07 06/06/17 07:30 Intake and Output: 06/06/17 06/06/17 06:59 18:59 Intake Total 180 720 Balance 180 720 - Medications Medications: Current Medications Amlodipine Besylate (Norvasc) 10 mg PO DAILY [facility] Last Admin: 06/06/17 13:07 Dose: 10 mg Aspirin (Ecotrin) 81 mg PO DAILY [facility] Last Admin: 06/06/17 13:07 Dose: 81 mg Atorvastatin Calcium (Lipitor) 40 mg PO HS [facility] Last Admin: 06/05/17 21:22 Dose: 40 mg Carvedilol (Coreg) 3.125 mg PO BID [facility] Last Admin: 06/06/17 13:07 Dose: 3.125 mg Famotidine (Pepcid) 40 mg PO HS [facility] Last Admin: 06/05/17 21:22 Dose: 40 mg Ketorolac Tromethamine (Toradol) 15 mg IVP Q6H PRN PRN Reason: Pain, moderate (4-7) Last Admin: 06/05/17 16:22 Dose: 15 mg Losartan Potassium (Cozaar) 50 mg PO DAILY [facility] Last Admin: 06/06/17 13:07 Dose: 50 mg Magnesium Oxide (Mag-Ox) 400 mg PO BID [facility] Last Admin: 06/06/17 15:37 Dose: Not Given - Labs Labs: 06/06/17 07:50 06/06/17 07:50 - Constitutional Appears: No Acute Distress - Head Exam Head Exam: ATRAUMATIC, NORMOCEPHALIC - Eye Exam Eye Exam: EOMI, PERRL - ENT Exam ENT Exam: Mucous Membranes Moist - Respiratory Exam Respiratory Exam: Clear to Ausculation Bilateral, NORMAL BREATHING PATTERN. absent: Rales, Rhonchi, Wheezes - Cardiovascular Exam Cardiovascular Exam: REGULAR RHYTHM, +S1, +S2 - GI/Abdominal Exam GI & Abdominal Exam: Soft, Normal Bowel Sounds. absent: Distended, Tenderness - Extremities Exam Extremities Exam: absent: Pedal Edema - Neurological Exam Neurological Exam: Alert, Awake, Oriented x3 - Psychiatric Exam Psychiatric exam: Normal Affect, Normal Mood - Skin Skin Exam: Dry, Warm Assessment and Plan - Assessment and Plan (Free Text) Assessment: 81 year old male with a past medical history significant for HTN, HLD, CAD s/p one Drug Eluting Stent, and recurrent syncopal episodes who presents after unwitnessed syncopal episode and fall. 1. Syncopal Episode s/p Fall -CT Head showing no acute intracranial abnormalities or hemorrhage -Carotid Duplex showing no significant stenosis -Knee X-Ray, Hip/Pelvis X-Ray, Shoulder X-Ray and Lumbar Spine CT showing no acute fractures -Echo pending -Head/Neck CTA shows less than 50% stenosis at the right carotid bifurcation -EEG pending -IM Toradol Q6 PRN for pain control -Continue NS at 100mls/hr -Neurology consulted, all recommendations appreciated -PT/OT recommending home upon discharge -Aspiration, Fall and Seizure precautions 2. History of CAD -Continue ASA and Coreg 3. History of HTN -Continue Cozaar and Norvasc 4. History of HLD -Continue Lipitor GI Prophylaxis: Pepcid DVT Prophylaxis: SCD's Disposition: Awaiting final work up before discharge. Patient seen and case discussed with attending, Dr. Johann Hightower <Johann Hightower - Last Filed: 06/07/17 15:14> Objective - Vital Signs/Intake and Output Vital Signs (last 24 hours): Temp Pulse Resp BP Pulse Ox 98.6 F 61 16 148/80 99 06/07/17 07:30 06/07/17 07:30 06/07/17 07:30 06/07/17 09:39 06/07/17 11:17 Intake and Output: 06/07/17 06/07/17 06:59 18:59 Intake Total 300 480 Balance 300 480 - Labs Labs: 06/07/17 07:00 06/07/17 07:00 Attending/Attestation - Attestation I have personally seen and examined this patient.: Yes I have fully participated in the care of the patient.: Yes I have reviewed all pertinent clinical information, including history, physical exam and plan: Yes Notes (Text): I have seen and examined the patient at bedside. Agree with the above note with the following additions/ exceptions: Briefly this is 81 year old male with history of HTN, dyslipidemia, CAD s/p 1 RICHARD and recurrent syncopal episodes who was admitted for unwitnessed syncopal episode and fall. Patient denies any aura , post ictal symptoms, tongue bite, urinary or bowel incontinence. CT head negative. CT angio of head and neck negative. Echo pending. Cardiac enzymes negative. EEG pending. PT eval appreciated. Upon discharge patient will follow up with Dr Dennis. Dr Johann Hightower
[2017-06-07 07:26] LABS: HEMOGLOBIN 10.7 g/dL (14.0-18.0); MEAN CELL VOLUME 76.8 fl (80.0-105.0); MEAN CORPUSCULAR HEMOGLOBIN 24.3 pg (25.0-35.0); MEAN CORPUSCULAR HGB CONC 31.7 g/dl (31.0-37.0); MEAN PLATELET VOLUME 9.5 fl (7.0-11.0); RBC 4.4 10^6/uL (3.5-6.1); WHITE BLOOD COUNT 5.1 10^3/ul (4.5-11.0)
[2017-06-07 08:06] VITALS: RESP 16; TEMP 98.6; O2SAT 99
[2017-06-07 08:08] LABS: ALB/GLOB RATIO 1.2 (1.1-1.8); ALBUMIN 3.6 g/dL (3.0-4.8); ALT/SGPT 23 U/L (7-56); AST/SGOT 33 U/L (17-59); BLOOD UREA NITROGEN 20 mg/dL (7-21); CALCIUM 9.9 mg/dL (8.4-10.5); GFR AFRICAN-AMERICAN > 60; GFR NON-AFRICAN AMERICAN 53
--- NOTE | 2017-06-07 08:59 | CARD ---
APPROVED REPORT EXAM: Two-dimensional and M-mode echocardiogram with Doppler and color Doppler. Other Information Quality : AverageRhythm : INDICATION Syncope 2D DIMENSIONS Left Atrium (2D)3.6 (1.6-4.0cm)IVSd0.9 (0.7-1.1cm) LVDd4.0 (3.9-5.9cm)PWd1.1 (0.7-1.1cm) LVDs2.7 (2.5-4.0cm)FS (%) 31.2 % LVEF (%)59.0 (>50%) M-Mode DIMENSIONS Aortic Root4.00 (2.2-3.7cm)Aortic Cusp Exc.1.50 (1.5-2.0cm) Aortic Valve AoV Peak Rkcekzfn216.0cm/s Mitral Valve MV E Hoirxxef37.9cm/sMV A Yssbrjnj054.0cm/sE/A ratio0.7 TDI Lateral E' Peak V10.70cm/sMedial E' Peak V8.97cm/sE/Lateral E'9.1 E/Medial E'10.8 Pulmonary Valve PV Peak Dsixnaxq76.0cm/sPV Peak Grad.2mmHg Tricuspid Valve TR Peak [id number]/sRAP [id number] Peak Gr.52mmHg [id number] LEFT VENTRICLE The left ventricle is normal size. There is normal left ventricular wall thickness. The left ventricular function is normal. The left ventricular ejection fraction is within the normal range. There is normal LV segmental wall motion. RIGHT VENTRICLE The right ventricle is normal size. ATRIA The left atrium size is normal. The right atrium size is normal. The interatrial septum is intact with no evidence for an atrial septal defect. AORTIC VALVE The aortic valve is normal in structure. MITRAL VALVE The mitral valve is normal in structure. Mitral regurgitation is mild. TRICUSPID VALVE The tricuspid valve is normal in structure. There is moderate tricuspid regurgitation. There is moderate pulmonary hypertension. PULMONIC VALVE The pulmonary valve is normal in structure. GREAT VESSELS The aortic root is normal in size. PERICARDIAL EFFUSION There is no pericardial effusion. <Conclusion> The left ventricle is normal size. There is normal left ventricular wall thickness. The left ventricular function is normal. Mitral regurgitation is mild. There is moderate tricuspid regurgitation. There is moderate pulmonary hypertension.
[2017-06-07] MEDS: Magnesium Oxide 400 mg Tab UD PO SCH (09:39)
[2017-06-07 09:44] VITALS: BP 148/80
--- NOTE | 2017-06-07 13:43 | CP.PCM.DIS ---
<Bo Ford S - Last Filed: 06/07/17 16:41> Provider - Provider Date of Admission: 06/04/17 02:08 Attending physician: Johann Hightower MD Primary care physician: Nicol Dennis Consults: Neurology-Dr. Kirk Time Spent in preparation of Discharge (in minutes): 40 Diagnosis - Discharge Diagnosis (1) Syncope Status: Acute Priority: High (2) History of coronary artery disease Status: Chronic Priority: Medium (3) History of hypertension Status: Chronic Priority: Medium (4) History of hyperlipidemia Status: Chronic Priority: Medium Hospital Course - Lab Results Lab Results: Most Recent Lab Values WBC 5.1 10^3/ul (4.5-11.0) 06/07/17 07:00 RBC 4.40 10^6/uL (3.5-6.1) 06/07/17 07:00 Hgb 10.7 g/dL (14.0-18.0) L 06/07/17 07:00 Hct 33.8 % (42.0-52.0) L 06/07/17 07:00 MCV 76.8 fl (80.0-105.0) L 06/07/17 07:00 MCH 24.3 pg (25.0-35.0) L 06/07/17 07:00 MCHC 31.7 g/dl (31.0-37.0) 06/07/17 07:00 RDW 13.0 % (11.5-14.5) 06/07/17 07:00 Plt Count 171 10^3/uL (120.0-450.0) 06/07/17 07:00 MPV 9.5 fl (7.0-11.0) 06/07/17 07:00 Gran % 41.7 % (50.0-68.0) L 06/06/17 07:50 Lymph % (Auto) 44.4 % (22.0-35.0) H 06/06/17 07:50 Desha % (Auto) 6.7 % (1.0-6.0) H 06/06/17 07:50 Eos % (Auto) 6.5 % (1.5-5.0) H 06/06/17 07:50 Baso % (Auto) 0.7 % (0.0-3.0) 06/06/17 07:50 Gran # 1.87 (1.4-6.5) 06/06/17 07:50 Lymph # (Auto) 2.0 (1.2-3.4) 06/06/17 07:50 Desha # (Auto) 0.3 (0.1-0.6) 06/06/17 07:50 Eos # (Auto) 0.3 (0.0-0.7) 06/06/17 07:50 Baso # (Auto) 0.03 K/mm3 (0.0-2.0) 06/06/17 07:50 Sodium 139 mmol/L (132-148) 06/07/17 07:00 Potassium 4.4 mmol/L (3.6-5.0) 06/07/17 07:00 Chloride 103 mmol/L (98-107) 06/07/17 07:00 Carbon Dioxide 27 mmol/L (21-33) 06/07/17 07:00 Anion Gap 14 (10-20) 06/07/17 07:00 BUN 20 mg/dL (7-21) 06/07/17 07:00 Creatinine 1.3 mg/dl (0.8-1.5) 06/07/17 07:00 Est GFR ( Amer) > 60 06/07/17 07:00 Est GFR (Non-Af Amer) 53 06/07/17 07:00 Random Glucose 76 mg/dL (70-110) 06/07/17 07:00 Calcium 9.9 mg/dL (8.4-10.5) 06/07/17 07:00 Magnesium 2.0 mg/dL (1.7-2.2) 06/03/17 23:05 Iron 33 ug/dL (45-180) L 06/04/17 03:00 TIBC 319 ug/dL (261-462) 06/04/17 03:00 % Saturation 10 % (20-55) L 06/04/17 03:00 Ferritin 60.3 ng/mL 06/04/17 03:00 Total Bilirubin 0.6 mg/dL (0.2-1.3) 06/07/17 07:00 AST 33 U/L (17-59) 06/07/17 07:00 ALT 23 U/L (7-56) 06/07/17 07:00 Alkaline Phosphatase 57 U/L (38-126) 06/07/17 07:00 Lactate Dehydrogenase 484 U/L (333-699) 06/03/17 23:05 Total Creatine Kinase 403 U/L (35-230) H 06/03/17 23:05 CK-MB (CK-2) 2.6 ng/mL (0.0-3.6) 06/03/17 23:05 CK-MB (CK-2) % Cancelled 06/03/17 23:05 Troponin I < 0.01 ng/mL 06/04/17 10:55 Total Protein 6.6 g/dL (5.8-8.3) 06/07/17 07:00 Albumin 3.6 g/dL (3.0-4.8) 06/07/17 07:00 Globulin 2.9 gm/dL 06/07/17 07:00 Albumin/Globulin Ratio 1.2 (1.1-1.8) 06/07/17 07:00 TSH 3rd Generation 1.35 mIU/mL (0.46-4.68) 06/04/17 03:00 Urine Color Yellow (YELLOW) 06/04/17 00:15 Urine Appearance Clear (CLEAR) 06/04/17 00:15 Urine pH 6.0 (4.7-8.0) 06/04/17 00:15 Ur Specific Aurora 1.020 (1.005-1.035) 06/04/17 00:15 Urine Protein Negative mg/dL (<30 mg/dL) 06/04/17 00:15 Urine Glucose (UA) Negative mg/dL (NEGATIVE) 06/04/17 00:15 Urine Ketones Negative mg/dL (NEGATIVE) 06/04/17 00:15 Urine Blood Negative (NEGATIVE) 06/04/17 00:15 Urine Nitrate Negative (NEGATIVE) 06/04/17 00:15 Urine Bilirubin Negative (NEGATIVE) 06/04/17 00:15 Urine Urobilinogen 0.2 E.U./dL (<1 E.U./dL) 06/04/17 00:15 Ur Leukocyte Esterase Negative Colby/uL (NEGATIVE) 06/04/17 00:15 Stool Occult Blood Negative (NEGATIVE) 06/06/17 00:05 Phenobarbital <5.0 mg/L (15.0-40.0) L 06/03/17 23:05 - Hospital Course Hospital Course: Initial admission note on 06/04/17: "Patient is an 81 y/o male with PMHx of htn, hld, CAD s/p 1 stent, h/o recurrent syncope like episodes brought in by ambulance s/p unwitnessed syncopal episode. Patient states last night after fixing his meal, he felt dizzy , he decided to lye on the ground, to let it pass. Then few moments later he got up, grab his food, then he doesn't remember what happened after. He saw himself lying on the ground with food on the floor, his buttocks hurting him, and he noted he had bowel incontinent. Denies bladder incontinent. Admits to headache. Denies bitting his tongue. Patient states about a year ago, while sitting on the toilet in [place] [employer] he passed out and fell, was admitted to [facility] at the time and was referred to a cardiology. Pt states he had extensive cardiac work up at the time and it was normal. Patient denies any other episodes up until today. Patient states his PMD, Dr Dennis prescribed him phenobarbital transiently, however he hasn't been on phenobarbital since then. Patient has never seen a neurologist. Denies cp, sob, fever or chills, denies nausea, vomiting or diarrhea. No fever or chills. Patient states his stool has been dark. Denies bright red blood per rectum." Hospital Course: Patient admitted for evaluation of unwitnessed syncopal event. Neurologist Dr. Kirk was consulted. No acute infarction or hemorrhages seen on CT of the head. Musculoskeletal imaging was ordered and were negative for acute fractures. Patient had carotid ultrasound which showed bilateral 20-39% proximal ICA stenoses. Head/neck CTA read mild less than 50 percent stenosis at the right carotid bifurcation and origin of right internal carotid artery. No evidence of significant stenosis in carotid and intracranial arteries. Echocardiogram revealed normal left ventricular function. EEG preliminary read was negative. At this time, patient is stable per neurology and primary teams for discharge. Patient instructed to follow up with his primary physician. Discharge Exam - Head Exam Head Exam: ATRAUMATIC, NORMOCEPHALIC - Eye Exam Eye Exam: EOMI, PERRL - ENT Exam ENT Exam: Mucous Membranes Moist - Respiratory Exam Respiratory Exam: Clear to PA & Lateral, NORMAL BREATHING PATTERN. absent: Rales, Rhonchi, Wheezes - Cardiovascular Exam Cardiovascular Exam: REGULAR RHYTHM, +S1, +S2 - GI/Abdominal Exam GI & Abdominal Exam: Normal Bowel Sounds, Soft. absent: Distended, Tenderness - Extremities Exam Extremities exam: normal inspection, pedal pulses present - Neurological Exam Neurological exam: Alert, CN II-XII Intact, Oriented x3 - Psychiatric Exam Psychiatric exam: Normal Affect, Normal Mood - Skin Skin Exam: Dry, Warm Discharge Plan - Follow Up Plan Condition: STABLE Disposition: HOME/ ROUTINE Instructions: Coronary Artery Disease (GEN), Syncope (GEN), Fall Prevention for Older Adults (GEN), Cholesterol and Your Health (GEN), Hypertension (GEN) Additional Instructions: Please follow up with PMD Dr Dennis call and make appointment Referrals: Nicol Dennis MD [Primary Care Provider] - <Johann Hightower - Last Filed: 06/08/17 15:39> Provider - Provider Date of Admission: 06/04/17 02:08 Attending physician: Johann Hightower MD [facility] - Lab Results Lab Results: Most Recent Lab Values WBC 5.1 10^3/ul (4.5-11.0) 06/07/17 07:00 RBC 4.40 10^6/uL (3.5-6.1) 06/07/17 07:00 Hgb 10.7 g/dL (14.0-18.0) L 06/07/17 07:00 Hct 33.8 % (42.0-52.0) L 06/07/17 07:00 MCV 76.8 fl (80.0-105.0) L 06/07/17 07:00 MCH 24.3 pg (25.0-35.0) L 06/07/17 07:00 MCHC 31.7 g/dl (31.0-37.0) 06/07/17 07:00 RDW 13.0 % (11.5-14.5) 06/07/17 07:00 Plt Count 171 10^3/uL (120.0-450.0) 06/07/17 07:00 MPV 9.5 fl (7.0-11.0) 06/07/17 07:00 Gran % 41.7 % (50.0-68.0) L 06/06/17 07:50 Lymph % (Auto) 44.4 % (22.0-35.0) H 06/06/17 07:50 Desha % (Auto) 6.7 % (1.0-6.0) H 06/06/17 07:50 Eos % (Auto) 6.5 % (1.5-5.0) H 06/06/17 07:50 Baso % (Auto) 0.7 % (0.0-3.0) 06/06/17 07:50 Gran # 1.87 (1.4-6.5) 06/06/17 07:50 Lymph # (Auto) 2.0 (1.2-3.4) 06/06/17 07:50 Desha # (Auto) 0.3 (0.1-0.6) 06/06/17 07:50 Eos # (Auto) 0.3 (0.0-0.7) 06/06/17 07:50 Baso # (Auto) 0.03 K/mm3 (0.0-2.0) 06/06/17 07:50 Sodium 139 mmol/L (132-148) 06/07/17 07:00 Potassium 4.4 mmol/L (3.6-5.0) 06/07/17 07:00 Chloride 103 mmol/L (98-107) 06/07/17 07:00 Carbon Dioxide 27 mmol/L (21-33) 06/07/17 07:00 Anion Gap 14 (10-20) 06/07/17 07:00 BUN 20 mg/dL (7-21) 06/07/17 07:00 Creatinine 1.3 mg/dl (0.8-1.5) 06/07/17 07:00 Est GFR ( Amer) > 60 06/07/17 07:00 Est GFR (Non-Af Amer) 53 06/07/17 07:00 Random Glucose 76 mg/dL (70-110) 06/07/17 07:00 Calcium 9.9 mg/dL (8.4-10.5) 06/07/17 07:00 Magnesium 2.0 mg/dL (1.7-2.2) 06/03/17 23:05 Iron 33 ug/dL (45-180) L 06/04/17 03:00 TIBC 319 ug/dL (261-462) 06/04/17 03:00 % Saturation 10 % (20-55) L 06/04/17 03:00 Ferritin 60.3 ng/mL 06/04/17 03:00 Total Bilirubin 0.6 mg/dL (0.2-1.3) 06/07/17 07:00 AST 33 U/L (17-59) 06/07/17 07:00 ALT 23 U/L (7-56) 06/07/17 07:00 Alkaline Phosphatase 57 U/L (38-126) 06/07/17 07:00 Lactate Dehydrogenase 484 U/L (333-699) 06/03/17 23:05 Total Creatine Kinase 403 U/L (35-230) H 06/03/17 23:05 CK-MB (CK-2) 2.6 ng/mL (0.0-3.6) 06/03/17 23:05 CK-MB (CK-2) % Cancelled 06/03/17 23:05 Troponin I < 0.01 ng/mL 06/04/17 10:55 Total Protein 6.6 g/dL (5.8-8.3) 06/07/17 07:00 Albumin 3.6 g/dL (3.0-4.8) 06/07/17 07:00 Globulin 2.9 gm/dL 06/07/17 07:00 Albumin/Globulin Ratio 1.2 (1.1-1.8) 06/07/17 07:00 TSH 3rd Generation 1.35 mIU/mL (0.46-4.68) 06/04/17 03:00 Urine Color Yellow (YELLOW) 06/04/17 00:15 Urine Appearance Clear (CLEAR) 06/04/17 00:15 Urine pH 6.0 (4.7-8.0) 06/04/17 00:15 Ur Specific [place] 1.020 (1.005-1.035) 06/04/17 00:15 Urine Protein Negative mg/dL (<30 mg/dL) 06/04/17 00:15 Urine Glucose (UA) Negative mg/dL (NEGATIVE) 06/04/17 00:15 Urine Ketones Negative mg/dL (NEGATIVE) 06/04/17 00:15 Urine Blood Negative (NEGATIVE) 06/04/17 00:15 Urine Nitrate Negative (NEGATIVE) 06/04/17 00:15 Urine Bilirubin Negative (NEGATIVE) 06/04/17 00:15 Urine Urobilinogen 0.2 E.U./dL (<1 E.U./dL) 06/04/17 00:15 Ur Leukocyte Esterase Negative Colby/uL (NEGATIVE) 06/04/17 00:15 Stool Occult Blood Negative (NEGATIVE) 06/06/17 00:05 Phenobarbital <5.0 mg/L (15.0-40.0) L 06/03/17 23:05 Attending/Attestation - Attestation I have personally seen and examined this patient.: Yes I have fully participated in the care of the patient.: Yes I have reviewed all pertinent clinical information, including history, physical exam and plan: Yes Notes (Text): I have seen and examined the patient at bedside. Agree with the above note with the following additions/ exceptions: Briefly this is 81 year old male with history of HTN, dyslipidemia, CAD s/p 1 RICHARD and recurrent syncopal episodes who was admitted for unwitnessed syncopal episode and fall. Patient denies any aura , post ictal symptoms, tongue bite, urinary or bowel incontinence. CT head negative. CT angio of head and neck negative. Echo revealed moderate TR and moderate pulmonary hypertension. Cardiac enzymes negative. EEG prelim negative. PT eval appreciated. Patient will go home. Upon discharge patient will follow up with Dr Dennis. Dr Johann Hightower
== END 2017-06-07 14:55 | disposition home or self-care (01) ==
LOC: ED 21:08 → ERH 06-04 02:08 → 3RSO 06-04 17:47 → 5RNO 06-05 15:25
PROVIDERS: ADMIT Internal Medicine; ATTEND Hospitalist
DX: R55 Syncope and collapse (principal); I10 Essential (primary) hypertension; E78.5 Hyperlipidemia, unspecified; I25.10 Atherosclerotic heart disease of native coronary artery without angina pectoris; E86.0 Dehydration; G40.909 Epilepsy, unspecified, not intractable, without status epilepticus
CPT/HCPCS: 36415; 70450; 70496; 70498; 72131; 73030; 73521; 73562; 80053; 80184; 81003; 82550; 82553; 82728; 83540; 83550; 83615; 83735; 84443; 84484; 85025; 85027; 93005; 93306; 93880; 95812; 97116; 97161; 99285; G0328; G0378; G8978; G8979; G8980; J1756; J1885; J7040; Q9967